=== PATIENT | female | born 1995 | race Caucasian/White ===

== ENCOUNTER 2017-12-26 22:17 | Observation (INO) ==
[2017-12-26 19:32] LABS: Bilirubin,Urine Negative (Negative); Blood,Urine Negative (Negative); Clarity,Urine Turbid (Clear); Color,Urine Dark Yellow (Yellow); Glucose,Urine (UA) Normal (Normal); Ketones,Urine Trace mg/dL (Negative); Leukocyte Esterase,Urine Moderate (Negative); Nitrite,Urine Negative (Negative); Protein,Urine 30 mg/dL (Neg-Trace); Specific Gravity,Urine > 1.030 (1.010-1.025); Urobilinogen,Urine Normal (Normal)
[2017-12-26 19:34] LABS: Bacteria,Urine Many per hpf (None-Few); RBC,Urine 0-3 per hpf (0-3); Squamous Epithelial Cell,Urine Many per lpf (None-Few)
[2017-12-26 19:37] LABS: Amphetamine Screen,Urine Negative ng/mL (Cutoff=1000); Barbiturate Screen,Urine Negative ng/mL (Cutoff=200); Benzodiazepines Screen,Urine Negative ng/mL (Cutoff=200); Cannabinoid Screen,Urine Positive ng/mL (Cutoff = 50); Cocaine Screen,Urine Negative ng/mL (Cutoff= 300); Opiate Screen,Urine Negative ng/mL (Cutoff=300); Phencyclidine Screen,Urine Negative ng/mL (Cutoff=25)
[2017-12-26 19:43] LABS: Basophils % 0.1 %; Eosinophils % 0.3 %; Hematocrit 32.7 % (35.3-44.9); Hemoglobin 11.2 g/dL (11.5-15.4); Immature Granulocytes % 0.5 % (0-4); Lymphocytes # 1.7 K/mcL (0.6-4.6); Lymphocytes % 20.9 %; Mean Corpuscular HGB Conc 34.3 g/dL (31.6-35.5); Mean Corpuscular Hemoglobin 30.1 pg (28.0-33.3); Mean Corpuscular Volume 87.9 fL (83.0-100.0); Mean Platelet Volume 9.7 fL (9.4-12.4); Monocytes # 0.8 K/mcL (0.0-1.3); Monocytes % 10.2 %; Neutrophils # 5.4 K/mcL (1.6-8.9); Platelet Count 289 K/mcL (140-400); Red Blood Count 3.72 M/mcL (3.82-4.97); Red Cell Distribution Width 12.6 % (11.5-14.5)
[2017-12-26 19:49] LABS: WBC,Urine 50-100 per hpf (0-3)
[2017-12-26 19:50] LABS: Hyaline Casts,Urine None Seen per lpf (None-Few)
[2017-12-26 20:01] LABS: Alanine Aminotransferase 44 Units/L (7-52); Aspartate Amino Transferase 33 Units/L (13-39); BUN/Creatinine Ratio 21 (6-26); Blood Urea Nitrogen 9 mg/dL (6-20); Lactate Dehydrogenase 114 Units/L (140-271); Uric Acid 5.1 mg/dL (2.3-7.6); eGFR For African Americans > 60 (> 60); eGFR For Non-African Americans > 60 (> 60)
--- NOTE | 2017-12-26 20:57 | OB/GYN History & Physical ---
Date of Encounter: 12/26/17 Time of Encounter: 20:20 Assessment and Plan (1) Abdominal pain Current visit: No Status: Acute Patient tender over round ligaments Qualifiers: Abdominal location: lower abdomen, unspecified Qualified Code(s): R10.30 - Lower abdominal pain, unspecified (2) Current visit: No Status: Acute awaiting ultrasound for dates Qualifiers: Weeks of gestation: unspecified Qualified Code(s): Z34.90 - Encounter for supervision of normal , unspecified, unspecified trimester History of Present Illness Chief complaint: abdominal pain in HPI: Ms. Carrillo is a 22 year old female with LMP 07/07/2018. Patient has not had any care yet with current due to transportation issues. Patient delivered last baby at [facility]. Patient reports she had a vaginal delivery 8 months ago and denies any problem with past . Patient reports she has had nausea and vomiting for the past day or so. Patient reports +FM. Denies LOF, VB, dysuria or flank pain. Patient reports history of trichomonas and chlamydia and a positive UPT in August at the [place] urgent [facility]. Patient has not had a test of cure. lab panel drawn today. GC/ chlamydia cultures and vaginosis panel were also collected. Ultrasound to date pending at this time. Past Med Surg Social Fam HX - Past Medical History Source: patient Medical history: non-contributory Psychiatric history: bipolar, depression - Past Surgical History Surgical History: no surgical history - Social History Smoking Status: Former smoker Smokeless Tobacco Status: No Alcohol use: none Drug use: none Current living situation: Home - Independent Activity Level: Independent ambulation Recent Out of Country Travel Within the Last 8 Weeks: No Exposure or Possible Exposure to Illness During Travel: No - Family History Mother Adopted: No Living Status: Still Living Hx Family Cardiac Disorders: Yes (heart bypass, blood clot) Hx Family Respiratory Disorders: Yes (copd) Hx Family Cancer: No Hx Family GI Disorders: No Hx Family Genitourinary Disorders: No Hx Family Endocrine Disorder: No Hx Family Musculoskeletal Disorders: Yes (fibromyalgia) Hx Family Neuromuscular Disorders: No Hx Family Neurologic Disorders: No Hx Family HEENT Disorders: No Hx Family Autoimmune Disorders: No Hx Family Reproductive Disorders: No Hx Family Psychosocial Disorders: No Hx Family Medical Disorders: No Obstetrical History - Pregnancies : 2 Para: 1 Term: 1 : 0 Ab's: 0 Livin Medications and Allergies 3 Allergy/AdvReac Type Severity Reaction Status Date / Time No Known Allergies Allergy Verified 12/26/17 16:53 Review of System OB - Constitutional Constitutional ROS IM: no chills, no fever(s), no headache(s) - Cardiovascular Cardiovascular: no chest pain, no edema, no lightheadedness, no palpitations, no syncope - Respiratory Respiratory: no cough - Gastrointestinal Gastrointestinal: abdominal pain, cramping, nausea, vomiting, no constipation, no diarrhea, no heartburn - Genitourinary Genitourinary: vaginal discharge, no abnormal vaginal bleeding, no dysuria, no flank pain, no urinary frequency, no vaginal odor, no vaginal pruritis Exam - Constitutional Constitutional: well developed, well nourished, no acute distress, average body habitus - HEENT HEENT: Normocephaly, Mucus Membranes Moist - Neck Neck exam: full ROM, supple - Lungs Respiratory exam: CTAB - Cardiovascular Cardiovascular exam: RRR, +S1, +S2 - Abdomen Abdomen: Present: bowel sounds normal, gravid, non tender - Extremities Extremities exam: full ROM, normal capillary refill, normal inspection Deep Tendon Reflex Grade: 2+ Normal - Vagina Vagina: Present: discharge (moderate amount of green discharge noted. ) - Anus/Rectum Anus/Rectum: Present: normal perianal skin - Comments Comments: FHt 130 bpm no contractions noted Results Result Diagrams: 12/26/17 19:25 12/26/17 19:25 Abnormal lab results RBC 3.72 M/mcL (3.82-4.97) L 12/26/17 19:25 Hgb 11.2 g/dL (11.5-15.4) L 12/26/17 19:25 Hct 32.7 % (35.3-44.9) L 12/26/17 19:25 Creatinine 0.43 mg/dL (0.60-1.20) L 12/26/17 19:25 Lactate Dehydrogenase 114 Units/L (140-271) L 12/26/17 19:25 Urine Clarity Turbid (Clear) A 12/26/17 19:00 Ur Specific [place] > 1.030 (1.010-1.025) H 12/26/17 19:00 Urine Protein 30 mg/dL (Neg-Trace) H 12/26/17 19:00 Urine Ketones Trace mg/dL (Negative) H 12/26/17 19:00 Ur Leukocyte Esterase Moderate (Negative) H 12/26/17 19:00 Urine Microscopic WBC 50-100 per hpf (0-3) H 12/26/17 19:00 Ur Squamous Epith Cells Many per lpf (None-Few) H 12/26/17 19:00 Urine Bacteria Many per hpf (None-Few) H 12/26/17 19:00 U Marijuana (THC) Screen Positive ng/mL (Cutoff = 50) H 12/26/17 19:00 All other labs normal. - VTE Reasons for not Prescribing Prophylaxis: Treatment not Indicated - Low risk for VTE
[2017-12-26 21:29] LABS: Candida DNA Not Detected (Not Detect); Gardnerella DNA Not Detected (Not Detect); Trichomonas DNA Not Detected (Not Detect)
[~2017-12-26 22:17] MED LIST: Ondansetron ODT 4 MG TAB.RAPDIS SL PRN
--- NOTE | 2017-12-26 23:32 | Event Note ---
Date of Encounter: 12/26/17 Time of Encounter: 23:30 Ultrasound today dates at 22w4d with EDC 04/27/2018 LMP dates at 24w4d with EDC of 04/13/2018 Final EDC 04/27/2018
--- NOTE | 2017-12-27 00:07 | Discharge Summary ---
Date of Encounter: 12/27/17 Time of Encounter: 00:06 - Discharge Diagnosis (1) Abdominal pain Priority: Primary Status: Inactive Comments: patient reports pain in better at this time and she would like to go home Qualifiers: Abdominal location: lower abdomen, unspecified Qualified Code(s): R10.30 - Lower abdominal pain, unspecified (2) Priority: Primary Status: Inactive Comments: Ultrasound today dates at 22w4d Ultrasound reports low lying placenta: patient education on nothing in the vagina until follow up ultrasound confirms distance of placenta from cervical os Qualifiers: Weeks of gestation: 22 weeks Qualified Code(s): Z3A.22 - 22 weeks gestation of - Discharge Medications Allergies/Adverse Reactions: 3 Allergy/AdvReac Type Severity Reaction Status Date / Time No Known Allergies Allergy Verified 12/26/17 16:53 Data Procedures and tests throughout hospitalization: Laboratory Tests 12/26/17 12/26/17 12/26/17 19:00 19:00 19:25 WBC RBC Hgb Hct MCV MCH MCHC RDW Plt Count MPV Immature Gran % Seg Neutrophils % Lymphocytes % Monocytes % Eosinophils % Basophils % Neutrophils # Lymphocytes # Monocytes # Eosinophils # Basophils # BUN Creatinine Est GFR ( Amer) Est GFR (Non-Af Amer) BUN/Creatinine Ratio Uric Acid AST ALT Lactate Dehydrogenase Urine Color Dark Yellow Urine Clarity Turbid A Urine pH 6.0 Ur Specific [place] > 1.030 H Urine Protein 30 H Urine Glucose (UA) Normal Urine Ketones Trace H Urine Blood Negative Urine Nitrite Negative Urine Bilirubin Negative Urine Urobilinogen Normal Ur Leukocyte Esterase Moderate H Urine Microscopic RBC 0-3 Urine Microscopic WBC 50-100 H Ur Squamous Epith Cells Many H Urine Bacteria Many H Hyaline Casts None Seen Urine Yeast COUTIERIER Ur Culture Indicated? NO. Urine Opiates Screen Negative Ur Barbiturates Screen Negative Ur Phencyclidine Scrn Negative Ur Amphetamines Screen Negative U Benzodiazepines Scrn Negative Urine Cocaine Screen Negative U Marijuana (THC) Screen Positive H Carmen species DNA Gardnerella DNA Probe Trichomonas DNA Probe Blood Type B POSITIVE 12/26/17 12/26/17 12/26/17 19:25 19:25 20:22 WBC 7.9 RBC 3.72 L Hgb 11.2 L Hct 32.7 L MCV 87.9 MCH 30.1 MCHC 34.3 RDW 12.6 Plt Count 289 MPV 9.7 Immature Gran % 0.5 Seg Neutrophils % 68.0 Lymphocytes % 20.9 Monocytes % 10.2 Eosinophils % 0.3 Basophils % 0.1 Neutrophils # 5.4 Lymphocytes # 1.7 Monocytes # 0.8 Eosinophils # 0.0 Basophils # 0.0 BUN 9 Creatinine 0.43 L Est GFR ( Amer) > 60 Est GFR (Non-Af Amer) > 60 BUN/Creatinine Ratio 21 Uric Acid 5.1 AST 33 ALT 44 Lactate Dehydrogenase 114 L Urine Color Urine Clarity Urine pH Ur Specific [place] Urine Protein Urine Glucose (UA) Urine Ketones Urine Blood Urine Nitrite Urine Bilirubin Urine Urobilinogen Ur Leukocyte Esterase Urine Microscopic RBC Urine Microscopic WBC Ur Squamous Epith Cells Urine Bacteria Hyaline Casts Urine Yeast Ur Culture Indicated? Urine Opiates Screen Ur Barbiturates Screen Ur Phencyclidine Scrn Ur Amphetamines Screen U Benzodiazepines Scrn Urine Cocaine Screen U Marijuana (THC) Screen Carmen species DNA Not Detected Gardnerella DNA Probe Not Detected Trichomonas DNA Probe Not Detected Blood Type Labs on day of discharge: Labs from last 24 hours 12/26/17 12/26/17 12/26/17 20:22 19:25 19:25 WBC 7.9 RBC 3.72 L Hgb 11.2 L Hct 32.7 L MCV 87.9 MCH 30.1 MCHC 34.3 RDW 12.6 Plt Count 289 MPV 9.7 Immature Gran % 0.5 Seg Neutrophils % 68.0 Lymphocytes % 20.9 Monocytes % 10.2 Eosinophils % 0.3 Basophils % 0.1 Neutrophils # 5.4 Lymphocytes # 1.7 Monocytes # 0.8 Eosinophils # 0.0 Basophils # 0.0 BUN 9 Creatinine 0.43 L Est GFR ( Amer) > 60 Est GFR (Non-Af Amer) > 60 BUN/Creatinine Ratio 21 Uric Acid 5.1 AST 33 ALT 44 Lactate Dehydrogenase 114 L Urine Color Urine Clarity Urine pH Ur Specific [place] Urine Protein Urine Glucose (UA) Urine Ketones Urine Blood Urine Nitrite Urine Bilirubin Urine Urobilinogen Ur Leukocyte Esterase Urine Microscopic RBC Urine Microscopic WBC Ur Squamous Epith Cells Urine Bacteria Hyaline Casts Urine Yeast Ur Culture Indicated? Urine Opiates Screen Ur Barbiturates Screen Ur Phencyclidine Scrn Ur Amphetamines Screen U Benzodiazepines Scrn Urine Cocaine Screen U Marijuana (THC) Screen Carmen species DNA Not Detected Gardnerella DNA Probe Not Detected Trichomonas DNA Probe Not Detected Blood Type 03/12/26/17 12/26/17 19:25 19:00 19:00 WBC RBC Hgb Hct MCV MCH MCHC RDW Plt Count MPV Immature Gran % Seg Neutrophils % Lymphocytes % Monocytes % Eosinophils % Basophils % Neutrophils # Lymphocytes # Monocytes # Eosinophils # Basophils # BUN Creatinine Est GFR ( Amer) Est GFR (Non-Af Amer) BUN/Creatinine Ratio Uric Acid AST ALT Lactate Dehydrogenase Urine Color Dark Yellow Urine Clarity Turbid A Urine pH 6.0 Ur Specific [place] > 1.030 H Urine Protein 30 H Urine Glucose (UA) Normal Urine Ketones Trace H Urine Blood Negative Urine Nitrite Negative Urine Bilirubin Negative Urine Urobilinogen Normal Ur Leukocyte Esterase Moderate H Urine Microscopic RBC 0-3 Urine Microscopic WBC 50-100 H Ur Squamous Epith Cells Many H Urine Bacteria Many H Hyaline Casts None Seen Urine Yeast COUTIERIER Ur Culture Indicated? NO. Urine Opiates Screen Negative Ur Barbiturates Screen Negative Ur Phencyclidine Scrn Negative Ur Amphetamines Screen Negative U Benzodiazepines Scrn Negative Urine Cocaine Screen Negative U Marijuana (THC) Screen Positive H Carmen species DNA Gardnerella DNA Probe Trichomonas DNA Probe Blood Type B POSITIVE - Impressions ITS Impressions Obstetrics Ultrasound 12/26/17 19:09 IMPRESSION: Single live intrauterine with gestational age of 22 weeks and 4 days by current sonographic biometry. The estimated due date is 04/27/2018. Low-lying placenta. D/ / Jerrod Edge MD / Jerrod Edge MD Interpreting Provider: Jerrod Edge MD Date of admission: 12/26/17 18:52 Discharging clinician: Jewels Rodriguez Anticipated date of discharge: 12/27/17 - Patient Status Disposition: Home, Self-Care Condition: Good Functional capacity at discharge: independent ambulation - Discharge Instructions - Diet and Activity Activity: increase activity as tolerated Diet: regular diet Hospital Course MEDIA TECHNICIAN Time Attestation: Total time spent providing and/or coordinating discharge services: Time Spent: Less than 30 minutes Exam - Constitutional General appearance IM: A&O X 3, pleasant, answers questions appropriately - Respiratory Respiratory exam: Present: CTAB - Cardiovascular Cardiovascular exam IM: Present: RRR, +S1, +S2 - Other Additional findings: FHR 140's appropriate for gestational age - VTE Reasons for not Prescribing Prophylaxis: Treatment not Indicated - Low risk for VTE
[2017-12-27 01:30] LABS: HIV-1&2 Antibody & p24 Ag Nonreactive (Nonreactive); Hepatitis B Surface Antigen Nonreactive (Nonreactive)
[2017-12-27 08:43] LABS: Estimated Average Glucose 91 mg/dl; Hemoglobin A1C 4.8 %
[2017-12-27 09:05] LABS: Rubella IgG Antibody POSITIVE (POSITIVE); Varicella Zoster IgG Antibody Positive
== END 2017-12-27 00:23 | disposition home or self-care (01) ==
LOC: 1NENULAB
PROVIDERS: ADMIT Obstetrics & Gynecology; ATTEND Obstetrics & Gynecology